=== PATIENT | male | born 1980 | race African-American/Black ===

== ENCOUNTER 2017-06-27 11:10 | Emergency (ER) | payer BC, OTHER ==
[2017-06-27 11:17] VITALS: BMI 27.3
[2017-06-27] MEDS ORDERED: morphine CARPU-JECT 4 MG/1 ML DISP.SYRIN IVPUSH ONE (11:37)
[2017-06-27] MEDS ORDERED: SODIUM CHLORIDE 1,000 ML IV STA (11:39)
--- NOTE | 2017-06-27 11:39 | PDOC ---
History of Present Illness - General Chief Complaint: Pain Stated Complaint: ABD PAIN Time Seen by Provider: 06/27/17 11:29 History Source: Patient - History of Present Illness Timing/Duration: reports: constant Quality: reports: severe Pain Radiation: reports: LUQ, LLQ Past History - Past Medical History Allergies/Adverse Reactions: Allergies Allergy/AdvReac Type Severity Reaction Status Date / Time No Known Allergies Allergy Verified 06/27/17 11:17 Home Medications: Ambulatory Orders Simvastatin 10 mg PO HS 06/27/17 Diabetes: Yes Hypercholesterolemia: Yes - Suicide/Smoking/Psychosocial Hx Smoking History: Current every day smoker Number of Cigarettes Smoked Daily: 2 Information on smoking cessation initiated: Yes 'Breaking Loose' booklet given: 06/27/17 Hx Alcohol Use: Yes (SOCIAL) Drug/Substance Use Hx: No Substance Use Type: Alcohol, Marijuana Review of Systems - Review of Systems Constitutional: No: Chills, Fever ABD/GI: No: Diarrhea, Nausea, Vomiting : No: Dysuria, Flank Pain, Hematuria *Physical Exam - Vital Signs Last Vital Signs Temp Pulse Resp BP Pulse Ox 98.7 F 107 H 20 123/92 97 06/27/17 11:13 06/27/17 11:13 06/27/17 11:13 06/27/17 11:13 06/27/17 11:13 - Physical Exam General Appearance: Yes: Appropriately Dressed, Severe Distress HEENT: positive: Normal Voice Neck: positive: Supple Respiratory/Chest: positive: Lungs Clear, Normal Breath Sounds. negative: Respiratory Distress Cardiovascular: positive: Regular Rate, S1, S2 Gastrointestinal/Abdominal: positive: Normal Bowel Sounds (to LUQ/LLQ, NT over mcburneys, no ttp to RUQ, no CVAT), Tender, Soft. negative: Distended, Guarding , Rebound Musculoskeletal: negative: CVA Tenderness Extremity: positive: Normal Inspection Integumentary: positive: Dry, Warm Neurologic: positive: Fully Oriented, Alert, Normal Mood/Affect ED Treatment Course - LABORATORY CBC & Chemistry Diagram: 06/27/17 12:00 06/27/17 12:00 - RADIOLOGY Radiology Studies Ordered: Category Date Time Status ABDOMEN & PELVIS CT WITH CONTR [CT] Stat CT Scan 06/27/17 11:37 Ordered Medical Decision Making - Medical Decision Making 06/27/17 11:38 36-year-old male history of hyperlipidemia, [id number] diabetes, here with severe abdominal pain that started last night, located diffusely, pressure-like and constant. No nausea, vomiting, change in bowel movements, dysuria, hematuria, fever or chills. No episode of same in the past. No h/o renal stone. Denies unusual food. No history of DKA and states FS has been "ok " at home See exam Abd pain Pt crying in ED 2/2 discomfort Mildly tachy w/ + ttp to LUQ/LLQ ?diverticulitis vs renal colic vs atypical appy vs DKA -pain control -labs -CT 06/27/17 11:43 06/27/17 11:46 06/27/17 12:57 Cr 1.4, possibly due to dehydration, no h/o CKD. Case w/ radiology and informed staff ok to get contrast study. Pt has since received IVF 06/27/17 14:16 Rest of labs and ua unremarkable. CT read as possible mesenteric adenitis, otherwise no acute pathology. On reassessment, patient states pain has resolved. Abdomen no longer tender on repeat exam. Feels safe going home to follow up with PMD as needed *DC/Admit/Observation/Transfer Diagnosis at time of Disposition: Abdominal pain Qualifiers: Abdominal location: generalized Qualified Code(s): R10.84 - Generalized abdominal pain; R10.84 - Generalized abdominal pain - Discharge Dispostion Disposition: HOME Condition at time of disposition: Improved - Patient Instructions Printed Discharge Instructions: DI for Abdominal Pain-Adult Additional Instructions: The cause of your pain is unclear at this time as your labs and CAT scan did not reveal any specific source for your pain. Take Tylenol or Motrin as needed for pain and if it recurs follow-up with your primary doctor - Post Discharge Activity Forms/Work/School Notes: Back to Work
[2017-06-27] MEDS ORDERED: morphine CARPU-JECT 10 MG/1 ML DISP.SYRIN ONE (11:42)
[2017-06-27 12:08] LABS: BASOPHIL 0.9 % (0-2.0); EOSINOPHIL 0.2 % (0-4.5); MCH 29.1 pg (25.7-33.7); MCHC 33.1 g/dl (32.0-35.9); MEAN CELL VOLUME 87.9 fl (80-96); MEAN PLT VOLUME 7.5 fl (7.5-11.1); NEUTROPHILS 77.4 % (42.8-82.8); PLATELET COUNT 282 K/MM3 (134-434); RDW 13.7 % (11.9-15.9); WHITE BLOOD COUNT 10.1 K/mm3 (4.0-10.0)
[2017-06-27 12:37] LABS: ALBUMIN 3.7 g/dl (3.4-5.0); ALK PHOS 72 U/L (45-117); ANION GAP 11 (8-16); BILIRUBIN,TOTAL 0.5 mg/dL (0.2-1.0); CALCIUM 8.7 mg/dL (8.5-10.1); CO2 26 mmol/L (21-32); CREATININE 1.4 mg/dL (0.7-1.3); GLUCOSE,RANDOM 99 mg/dL (74-106); SGOT/AST 30 U/L (15-37); SGPT/ALT 64 U/L (12-78); TOT PROT 7.5 g/dl (6.4-8.2)
[2017-06-27 13:47] LABS: URINE APPEARANCE CLEAR; URINE BILIRUBIN NEGATIVE (NEGATIVE); URINE BLOOD NEGATIVE (NEGATIVE); URINE COLOR YELLOW; URINE GLUCOSE (UA) NEGATIVE (NEGATIVE); URINE KETONE NEGATIVE (NEGATIVE); URINE NITRITE NEGATIVE (NEGATIVE); URINE PROTEIN NEGATIVE (NEGATIVE); URINE UROBILINOGEN NEGATIVE mg/dL (0.2-1.0)
[2017-06-27 14:27] VITALS: BP 140/75; PULSE 83; TEMP 98
[2017-06-27 16:50] LABS: URINE LEUK ESTERASE Negative (NEGATIVE)
== END 2017-06-27 14:28 | disposition home or self-care (01) ==
LOC: JER 11:10
PROC: 3E033NZ Introduction of Analgesics, Hypnotics, Sedatives into Peripheral Vein, Percutaneous Approach (ICD-10-PCS; principal; 2017-06-27)
PROC: 3E0337Z Introduction of Electrolytic and Water Balance Substance into Peripheral Vein, Percutaneous Approach (ICD-10-PCS; 2017-06-27)
DX: R10.84 Generalized abdominal pain (principal); E11.9 Type 2 diabetes mellitus without complications; E78.00 Pure hypercholesterolemia, unspecified; Z72.0 Tobacco use
CPT/HCPCS: 36415; 74177-TC; 80053; 81003; 82009; 83690; 85025; 99283-25

== ENCOUNTER 2019-08-17 02:25 | Emergency (ER) | payer BC, OTHER ==
[2019-08-17 02:38] VITALS: BMI 28.0
[2019-08-17] MEDS ORDERED: ACETAMINOPHEN 1000 MG/100 ML VIAL (NON FORMULARY) IVPB ONE (03:21)
--- NOTE | 2019-08-17 03:30 | PDOC ---
History of Present Illness - General Chief Complaint: Chest Pain Stated Complaint: CHEST PAIN Time Seen by Provider: 08/17/19 03:11 - History of Present Illness Initial Comments: Bakari Giron is a 38yo man with a PMH of NIDDM, HLD and HTN(?) who presents with acute onset of left-sided chest pain about 1.5hrs ago. He states that he was driving home from work when the pain started. He describes it as intermittent, non-radiating stabbing pains that last 5-10 minutes. Laying down, using his left arm, and breathing makes the pain worse. He denies any associated nausea, sweating, or lightheadedness but does report that he has been having difficulty taking a deep breath due to the pain. He denies any recent fever/chills, cough, congestion, cardiac abnormalities, family history of early [place], known injury to his left side, excess use of his LUE (no heavy lifting, carrying, etc). 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 He reports occasional cigarette smoking. Past History - Past Medical History Allergies/Adverse Reactions: Allergies Allergy/AdvReac Type Severity Reaction Status Date / Time No Known Allergies Allergy Verified 08/17/19 02:34 Home Medications: Ambulatory Orders Simvastatin 10 mg PO HS 06/27/17 COPD: No Diabetes: Yes Hypercholesterolemia: Yes - Immunization History Immunization Up to Date: Yes - Psycho Social/Smoking Cessation Hx Smoking History: Current some day smoker Have you smoked in the past 12 months: No Number of Cigarettes Smoked Daily: 2 Information on smoking cessation initiated: No 'Breaking Loose' booklet given: 06/27/17 Hx Alcohol Use: Yes Drug/Substance Use Hx: No Substance Use Type: Alcohol, Marijuana Review of Systems - Review of Systems Comments:: General: No fevers, no chills, no weight or appetite change, no malaise HEENT: No changes in vision, no changes in hearing, no congestion, no sore throat CV: + chest pain, no palpitations, no LE edema Pulm: No SOB, no cough, no wheezing GI: No nausea or vomiting, no change in bowel habits, no melena : No frequency, no urgency, no dysuria Musc: No back pain, no joint swelling, no recent injury Skin: No rash, no lesions, no erythema Endo: No excessive thirst, no heat/cold intolerance Heme: No unusual bruising or bleeding, no swollen glands Neuro: No syncope, no numbness/tingling, no focal weakness Vasc: No claudication Psych: No recent change in mood, no SI or HI *Physical Exam - Vital Signs Last Vital Signs Temp Pulse Resp BP Pulse Ox 97.5 F L 97 H 20 141/80 99 08/17/19 02:32 08/17/19 02:32 08/17/19 02:32 08/17/19 02:32 08/17/19 02:32 - Physical Exam General: Uncomfortable but in no acute distress HEENT: Atraumatic, PERRL, EOMI, b/l injected sclera, MMM, voice normal Cards: RRR, no murmur appreciated. TTP over left chest wall Pulm: Comfortable on room air, clear to auscultation bilaterally Abd: Soft, nontender, nondistended Ext: Atraumatic. No LE edema. ROM intact. WWP Skin: Normal color, no rashes or lesions Neuro: A&Ox3, CN grossly intact, normal speech, motor/sensory grossly intact and symmetric Psych: Mood appropriate to situation ED Treatment Course - LABORATORY CBC & Chemistry Diagram: 08/17/19 03:30 08/17/19 03:30 - RADIOLOGY Radiology Studies Ordered: Category Date Time Status CHEST PA & LAT [RAD] Stat Radiology 08/17/19 03:20 Ordered Medical Decision Making - Medical Decision Making 08/17/19 03:22 Bakari Giron is a 38yo man with a PMH of NIDDM, HLD and HTN(?) who presents with acute onset of sharp, non-radiating, intermittent left-sided chest pain about 1.5hrs ago. The pain is aggravated by arm movement, breathing, and worse with laying down. He denies any associated symptoms. - Ddx includes musculoskeletal pain. High risk for cardiac cause of pain given DM, HLD, possible HTN, smoking. Unlikely pneumonia given no fever or cough but pt reports recent URI. No known risk factors for PE - CBC, CMP, mag, trop, EKG, CXR - IV acetaminophen for pain 08/17/19 03:25 - EKG completed. NSR with HR 93, normal axis, normal intervals. Several PACs noted 08/17/19 05:07 - Labs reviewed. No concerning abnormalities. Trop negative - CXR without focal pathology - Will update pt regarding results. Will need second trop, likely admit for ACS workup given risk factors 08/17/19 05:56 - Updated pt with results. Recommending admission for ACS workup - Pt now reports that he recently had a holter monitor. Has been seeing Dr Negron , cardiology, and was recently referred to EP due to occasional arrhythmia - Given new information, strongly encouraged pt regarding hospital admission. Pt requesting time to consider. 08/17/19 06:10 - Pt states that he does not wish to be admitted, says that he already sees cardiology, had a stress test, will follow up with his regular doctor. Discussed at length that pt has risk factors for CAD and may need additional testing more urgently. Pt states that he understands but will not be admitted to the hospital. [place] to stay for repeat trop. - 2nd trop ordered. 08/17/19 07:01 - Sign out given to Dr Norris for the remainder of his ED care Discussed with Dr Hung Maldonado PGY2 Discharge - Discharge Information Problems reviewed: Yes Clinical Impression/Diagnosis: Left-sided chest pain - Follow up/Referral - Patient Discharge Instructions - Post Discharge Activity
[2019-08-17] MEDS ORDERED: ACETAMINOPHEN INJECTION 100 ML IVPB ONE (03:31)
[2019-08-17 03:40] LABS: BASO % 1.4 % (0-2.0); EOS % 1.1 % (0-4.5); HEMATOCRIT 48.5 % (35.4-49); LYMPH % 40.5 % (8-40); MCH 29.6 pg (25.7-33.7); MCHC 33.1 g/dl (32.0-35.9); MEAN CELL VOLUME 89.7 fl (80-96); MEAN PLT VOLUME 7.5 fl (7.5-11.1); MONO % 7.9 % (3.8-10.2); NEUT % 49.1 % (42.8-82.8); PLATELET COUNT 301 K/MM3 (134-434); RBC 5.41 M/mm3 (4.00-5.60); RDW 13.7 % (11.9-15.9); WHITE BLOOD COUNT 9.4 K/mm3 (4.0-10.0)
[2019-08-17 04:18] LABS: BILIRUBIN,TOTAL 0.3 mg/dL (0.2-1); BLOOD UREA NITROGEN 13.7 mg/dL (7-18); CALCIUM 9.5 mg/dL (8.5-10.1); CREATININE 1.3 mg/dL (0.55-1.3); POTASSIUM 4.5 mmol/L (3.5-5.1); TOT PROT 7.4 g/dl (6.4-8.2)
--- NOTE | 2019-08-17 04:32 | PDOC ---
Attending Attestation - Resident Resident Name: Gay Maldonado - ED Attending Attestation I have performed the following: I have examined & evaluated the patient, The case was reviewed & discussed with the resident, I agree w/resident's findings & plan, Exceptions are as noted - HPI HPI: 08/17/19 04:31 Mr. Giron is a 38yo man with a PMH of NIDDM, HLD, HTN who presents with acute onset of left-sided chest pain which began 1.5hrs ago. His symptoms began when he was driving home Pain is sharp/stabbing, intermittent, non-radiating, lasting 5-10 minutes. Pain worsens with movement No associated nausea, sweating, or lightheadedness but does report that he has been having difficulty taking a deep breath due to the pain. No chest wall trauma, no injury 08/17/19 04:32 - Physicial Exam PE: 08/17/19 04:51 GENERAL: The patient is in no acute distress. ENT: Ears normal, nares patent, oropharynx clear without exudates. Moist mucous membranes. NECK: Normal range of motion, supple LUNGS: Breath sounds equal, clear to auscultation bilaterally. No wheezes, and no crackles. HEART:Regular rate and rhythm, normal S1 and S2 without murmur, rub or gallop. ABDOMEN: Soft, nontender, normoactive bowel sounds. EXTREMITIES: Normal range of motion, no edema. NEUROLOGICAL: Cranial nerves II through XII grossly intact. Normal speech. No focal neurological deficits. SKIN: Warm, Dry, normal turgor, no rashes or lesions noted. - Medical Decision Making 08/17/19 04:51 38-year-old male presenting to the emergency department with a complaint of chest pain Differential diagnosis includes but is not limited to Differential includes cardiac ischemia, pe, asthma exacerbation, pneumonia, pneumothorax, pleural effusion, costochondritis, pericarditis, GERD. EKG: Normal sinus rhythm, rate of 93 bpm, axis is normal, intervals are normal, J- point elevation in V2, V3, T waves are upright, no pathological Q waves Laboratory Tests 08/17/19 08/17/19 03:30 03:30 BUN 13.7 Creatinine 1.3 Creatine Kinase 618 H Troponin I < 0.02 Chest x-ray: Normal Will place on observation given heart score 3 (based on risk factors) 08/17/19 06:09 Patient refusing to stay in the hospital at this time. He is agreeable to repeat troponin Will AMA Signed out to morning team 08/17/19 06:45 Heart Score/ECG Review - History History: Slightly suspicious - Electrocardiogram EKG: Non specific repolarization disturbance - Age Age: </= 45 - Risk Factors Risk Factors Heart Score: Yes Hx Hypercholesterolemia, Yes Hx Hypertension, Yes Hx Diabetes Based on the list above the patient has:: >/=3 risk factors or Hx atherosclerotic disease - Troponin Troponin: </= normal limit - Score Heart Score - Total: 3
[2019-08-17 08:19] VITALS: BP 140/65; PULSE 76; TEMP 98
--- NOTE | 2019-08-17 18:12 | PDOC ---
*Physical Exam - Vital Signs Last Vital Signs Temp Pulse Resp BP Pulse Ox 98.0 F 76 20 140/65 99 08/17/19 08:00 08/17/19 08:00 08/17/19 02:32 08/17/19 08:00 08/17/19 08:00 ED Treatment Course - LABORATORY CBC & Chemistry Diagram: 08/17/19 03:30 08/17/19 03:30 - ADDITIONAL ORDERS Additional order review: Laboratory Results 08/17/19 06:45 Troponin I < 0.02 08/17/19 03:30 RBC 5.41 MCV 89.7 MCHC 33.1 RDW 13.7 MPV 7.5 Neutrophils % 49.1 D Lymphocytes % 40.5 H D Monocytes % 7.9 Eosinophils % 1.1 D Basophils % 1.4 - Medications Given in the ED: ED Medications Discontinued Medications Generic Name Dose Route Start Last Admin Trade Name Freq PRN Reason Stop Dose Admin Acetaminophen 1,000 mg 08/17/19 03:21 08/17/19 03:29 Ofirmev Injection - IVPB 08/17/19 03:22 1,000 mg ONCE ONE Administration Medical Decision Making - Medical Decision Making 08/17/19 18:11 Bakari Giron is a 38yo man with a PMH of NIDDM, HLD and HTN(?) who presents with acute onset of sharp, non-radiating, intermittent left-sided chest pain about 1.5hrs ago. The pain is aggravated by arm movement, breathing, and worse with laying down. He denies any associated symptoms. -signed out to followup 2nd trop and admit for tele obs if patient willing 08/17/19 18:11 2nd trop negative patient wants to leave AMA discussed with patient risks; he understands and will return if needed Discharge - Discharge Information Problems reviewed: Yes Clinical Impression/Diagnosis: Left-sided chest pain Condition: Good Disposition: AGAINST MEDICAL ADVICE - Follow up/Referral - Patient Discharge Instructions - Post Discharge Activity
--- NOTE | 2019-08-18 14:53 | EKG ---
Test Reason : Blood Pressure : / mmHG Vent. Rate : 093 BPM Atrial Rate : 093 BPM P-R Int : 138 ms QRS Dur : 090 ms QT Int : 366 ms P-R-T Axes : 057 051 037 degrees QTc Int : 455 ms SINUS RHYTHM WITH PREMATURE ATRIAL COMPLEXES OTHERWISE NORMAL ECG WHEN COMPARED WITH ECG OF 13-OCT-2014 12:23, PREMATURE ATRIAL COMPLEXES ARE NOW PRESENT Confirmed by KATINA FRAGOSO, KAT ([id number] on 08/18/2019 2:52:38 PM Referred By: Confirmed By:KAT AMBRIZ MD
== END 2019-08-17 08:19 | disposition left against medical advice (07) ==
LOC: JER 02:25
PROC: 3E033NZ Introduction of Analgesics, Hypnotics, Sedatives into Peripheral Vein, Percutaneous Approach (ICD-10-PCS; principal; 2019-08-17)
DX: R07.89 Other chest pain (principal); E11.9 Type 2 diabetes mellitus without complications; E78.5 Hyperlipidemia, unspecified; I10 Essential (primary) hypertension; F17.210 Nicotine dependence, cigarettes, uncomplicated
CPT/HCPCS: 36415; 71046-TC-FY; 80053; 82550; 82553; 83735; 84484; 85025; 93005; 93010; 99284-25; J0131